=== PATIENT | female | born 2000 | race Caucasian/White ===

== ENCOUNTER 2021-11-02 16:55 | Inpatient (IN) | payer MEDICAID ==
[~2021-11-02] VITALS: Ht 177.8 cm; Wt 75.3 kg
[2021-11-02] MEDS ORDERED: PRENATAL VITAM1 EAC3 PO (18:04)
[2021-11-02 18:39] LABS: HEMOGLOBIN 10.4 gm/dl (12.3-15.3); RED BLOOD COUNT 3.56 M/UL (4.00-5.10); WHITE BLOOD COUNT 7.6 K/UL (4.5-11.0)
[2021-11-03] MEDS ORDERED: HYDROCODON-ACE1 EAC2 PO (20:09)
[2021-11-03] MEDS ORDERED: IBUPROFEN800 MG PO (20:09)
[2021-11-03] MEDS ORDERED: COLACE 100MG C100 MG PO (20:09)
[2021-11-04 05:56] LABS: HEMOGLOBIN 9.5 gm/dl (12.3-15.3)
[2021-11-04] MEDS ORDERED: FERROUS SULFAT325 MG PO (14:07)
== END 2021-11-05 13:18 | disposition home or self-care (01) | DRG 788 ==
LOC: GENOP 16:55 → OB 17:15
PROVIDERS: Obstetrics & Gynecology; ADMIT Obstetrics & Gynecology
PROC: 10907ZC Drainage of Amniotic Fluid, Therapeutic from Products of Conception, Via Natural or Artificial Opening (ICD-10-PCS; 2021-11-03)
PROC: 10H07YZ Insertion of Other Device into Products of Conception, Via Natural or Artificial Opening (ICD-10-PCS; 2021-11-03)
PROC: 4A1H7CZ Monitoring of Products of Conception, Cardiac Rate, Via Natural or Artificial Opening (ICD-10-PCS; 2021-11-03)
PROC: 10H073Z Insertion of Monitoring Electrode into Products of Conception, Via Natural or Artificial Opening (ICD-10-PCS; 2021-11-03)
PROC: 3E0234Z Introduction of Serum, Toxoid and Vaccine into Muscle, Percutaneous Approach (ICD-10-PCS; 2021-11-03)
PROC: 10D00Z1 Extraction of Products of Conception, Low, Open Approach (ICD-10-PCS; principal; 2021-11-03 20:04)
DX: O36.5930 Maternal care for other known or suspected poor fetal growth, third trimester, not applicable or unspecified (principal); Z37.0 Single live birth; O99.02 Anemia complicating childbirth; D64.9 Anemia, unspecified; E66.9 Obesity, unspecified; O99.214 Obesity complicating childbirth; Z3A.39 39 weeks gestation of pregnancy; R62.52 Short stature (child); Z23 Encounter for immunization; Z28.310 Unvaccinated for COVID-19; O62.1 Secondary uterine inertia; O75.89 Other specified complications of labor and delivery; O76 Abnormality in fetal heart rate and rhythm complicating labor and delivery; O99.334 Smoking (tobacco) complicating childbirth; F17.200 Nicotine dependence, unspecified, uncomplicated; O33.1 Maternal care for disproportion due to generally contracted pelvis
CPT/HCPCS: 36415; 81001; 82800; 85014; 85018; 85025; 90707; 90715; C9113; J0690; J2210; J2274; J2370; J2405; J2590; J2765